=== PATIENT | female | born 1990 | race Caucasian/White ===

== ENCOUNTER → 2016-05-28 | Outpatient (CLI) | payer OTHER ==
[~2016-05-28] MED LIST: ACET50TA PO; IBUP80TA PO; PRENTAB55 PO
--- NOTE | 2016-05-28 14:41 | REP ---
Right upper quadrant sonography: History: Right upper quadrant abdominal pain. Findings: Scanning through the right upper quadrant of the abdomen demonstrates a normal sized thin-walled gallbladder without evidence of tenderness to scanning. There is non-shadowing echogenic material on the dependent portion the gallbladder which is mobile. This may be mucoid debris versus non-shadowing calculus. Common bile duct is normal measuring 0.5 cm in greatest diameter. No focal liver lesion is seen. Pancreatic tail is obscured by abdominal gas. No pancreatic abnormality is appreciated. There is no visible free fluid in the abdomen. No right renal abnormality is seen. The right kidney measures 11.2 x 6.0 x 4.8 cm. Impression: Non-shadowing mobile echogenic material in the dependent gallbladder wall, sludge ball versus non-shadowing calculus. Otherwise negative right upper quadrant sonography. Signed by Spencer Santos MD 05/28/2016 07:18 P
== END ==
LOC: M RAD 08:42
PROVIDERS: ATTEND Nurse Practitioner Adult Health
DX: R93.3 Abnormal findings on diagnostic imaging of other parts of digestive tract (principal); K81.0 Acute cholecystitis; R10.10 Upper abdominal pain, unspecified

== ENCOUNTER → 2016-08-16 | Outpatient (CLI) | payer OTHER ==
[~2016-08-16] VITALS: Ht 157.5 cm; Wt 78.9 kg
[~2016-08-16] MED LIST changes: +LIDOCAINE 2% INJ 100 MG/5 ML SDV (FOR ANES.) As Ordered ONE; +NS 1,000 ML IV ONE; +OMEP20CA3 PO; +PROPOFOL 200 MG/20 ML VIAL As Ordered ONE; +RANI150T PO; +VITA200016 PO
--- NOTE | 2016-08-16 15:56 | ROOR ---
Patient Name: Audra Flores Procedure Date: 08/16/2016 3:46 PM Date of : 1990 Age: 25 Room: [facility] Gender: Female Note Status: Finalized Procedure: Upper GI endoscopy Indications: Epigastric abdominal pain, Abdominal pain in the right upper quadrant Providers: Ti BECERRA MD Referring MD: MINESH PIÑA NP Requesting Provider: Medicines: Monitored Anesthesia Care Complications: No immediate complications. Procedure: Pre-Anesthesia Assessment: - The heart rate, respiratory rate, oxygen saturations, blood pressure, adequacy of pulmonary ventilation, and response to care were monitored throughout the procedure. The Endoscope was introduced through the mouth, and advanced to the second part of duodenum. The upper GI endoscopy was accomplished without difficulty. The patient tolerated the procedure well. Findings: The esophagus was normal. The stomach was normal. The examined duodenum was normal. Impression: - Normal esophagus. - Normal stomach. - Normal examined duodenum. - No specimens collected. Recommendation: - Observe patient's clinical course. - Continue present medications. iT Becerra MD Ti BECERRA MD 08/16/2016 3:56:04 PM This report has been signed electronically. Number of Addenda: 0 Note Initiated On: 08/16/2016 3:46 PM Estimated Blood Loss: Estimated blood loss: none.
--- NOTE | 2016-08-16 16:11 | ROOR ---
Patient Name: Audra Flores Procedure Date: 08/16/2016 3:47 PM Date of : 1990 Age: 25 Room: [facility] Gender: Female Note Status: Finalized Procedure: Colonoscopy Indications: Generalized abdominal pain, Abnormal CT of the GI tract, Change in bowel habits, Constipation Providers: Ti BECERRA MD Referring MD: MINESH PIÑA NP Requesting Provider: Medicines: Monitored Anesthesia Care Complications: No immediate complications. Procedure: Pre-Anesthesia Assessment: - The heart rate, respiratory rate, oxygen saturations, blood pressure, adequacy of pulmonary ventilation, and response to care were monitored throughout the procedure. The Colonoscope was introduced through the anus and advanced to 5 cm into the ileum. The colonoscopy was performed without difficulty. The patient tolerated the procedure well. The quality of the bowel preparation was good. Findings: The perianal and digital rectal examinations were normal. A 4 mm polyp was found in the descending colon. The polyp was sessile. The polyp was removed with a cold snare. Resection and retrieval were complete. Small Internal Hemorrhoids. The exam was otherwise without abnormality on direct and retroflexion views. Impression: - One 4 mm polyp in the descending colon, removed with a cold snare. Resected and retrieved. - Small Internal Hemorrhoids. - The examination of the colon and terminal ileum is otherwise normal on direct and retroflexion views. Recommendation: - Continue present medications. - Telephone endoscopist for pathology results in 2 weeks. - If the pathology report reveals adenomatous tissue, then repeat the colonoscopy for surveillance in 5 years. - If the pathology report indicates hyperplastic polyp, then repeat colonoscopy at age [age] years old. Ti Becerra MD Ti BECERRA MD 08/16/2016 4:11:07 PM This report has been signed electronically. Number of Addenda: 0 Note Initiated On: 08/16/2016 3:47 PM Estimated Blood Loss: Estimated blood loss: none.
[2016-08-16 16:34] VITALS: BP 114/60
== END | disposition home or self-care (01) ==
LOC: M OPP 13:46
PROVIDERS: ATTEND Internal Medicine Gastroenterology
DX: R93.3 Abnormal findings on diagnostic imaging of other parts of digestive tract (principal); R10.84 Generalized abdominal pain; R19.4 Change in bowel habit; R11.0 Nausea; D12.4 Benign neoplasm of descending colon; K64.8 Other hemorrhoids; R10.11 Right upper quadrant pain; R10.13 Epigastric pain; R12 Heartburn; G47.8 Other sleep disorders; G47.30 Sleep apnea, unspecified; R06.83 Snoring; Z87.891 Personal history of nicotine dependence; Z79.899 Other long term (current) drug therapy; Z80.6 Family history of leukemia

== ENCOUNTER → 2016-10-29 | Outpatient (REF) | payer OTHER ==
[~2016-10-29] MED LIST changes: -LIDOCAINE 2% INJ 100 MG/5 ML SDV (FOR ANES.) As Ordered ONE; -NS 1,000 ML IV ONE; -PROPOFOL 200 MG/20 ML VIAL As Ordered ONE
== END ==
LOC: M SFHCLERA 20:59
PROVIDERS: ATTEND Nurse Practitioner Family
DX: R20.2 Paresthesia of skin (principal)

== ENCOUNTER → 2016-10-30 | Outpatient (REF) | payer OTHER ==
[2016-11-09 00:06] LABS: Lyme Disease IgG/IgM Antibodie <0.91 ISR (0.00-0.90); Lyme Disease IgM Ab Quantitati <0.80 index (0.00-0.79)
== END ==
LOC: M LABDRAW1 15:48
PROVIDERS: ATTEND Orthopaedic Surgery
DX: M54.5 Low back pain (principal)

== ENCOUNTER → 2017-03-20 | Outpatient (CLI) | payer OTHER ==
[~2017-03-20] MED LIST changes: -ACET50TA PO; -IBUP80TA PO; -OMEP20CA3 PO; -PRENTAB55 PO; +PROHANCE 279.3MG/ML 15ML VIAL (A9576) As Ordered; -RANI150T PO; -VITA200016 PO
== END ==
LOC: M RAD 12:41
DX: M54.9 Dorsalgia, unspecified (principal); G89.29 Other chronic pain
CPT/HCPCS: A9576

== ENCOUNTER → 2017-04-09 | Outpatient (REF) | payer OTHER ==
[2017-04-09 13:33] LABS: BASO % 0.8 % (0.0-1.0); EOS # 0.1 10^3/uL (0.0-0.50); EOS % 2.1 % (0.0-3.0); HEMATOCRIT 37.7 % (36.0-47.0); HEMOGLOBIN 12.4 g/dl (12.0-16.0); MEAN CORPUSCULAR HEMOGLOBIN 28.5 pg (27.0-33.0); MEAN CORPUSCULAR HGB CONC 32.9 g/dl (32.0-36.5); MEAN CORPUSCULAR VOLUME 86.7 fl (80.0-96.0); MONO # 0.4 10^3/uL (0.0-0.8); MONO % 8.4 % (0.0-5.0); NEUTROPHILS # 2.2 10^3/uL (1.8-7.7); NEUTROPHILS % 46.7 % (36.0-66.0); PLATELET COUNT, AUTOMATED 296 10^3/uL (150-450); RED BLOOD COUNT 4.35 10^6/uL (4.00-5.40); RED CELL DISTRIBUTION WIDTH 12.5 % (11.5-14.5); WHITE BLOOD COUNT 4.7 10^3/uL (4.0-10.0)
[2017-04-09 13:51] LABS: ALBUMIN 3.9 GM/DL (3.2-5.2); ALBUMIN/GLOBULIN RATIO 1.11 (1.00-1.93); ALKALINE PHOSPHATASE 54 U/L (45-117); ALT/SGPT 17 U/L (12-78); ANION GAP 6 MEQ/L (8-16); AST/SGOT 16 U/L (7-37); BILIRUBIN,TOTAL 0.3 MG/DL (0.2-1.0); BLOOD UREA NITROGEN 11 MG/DL (7-18); CALCIUM LEVEL 8.9 MG/DL (8.5-10.1); CARBON DIOXIDE LEVEL 29 MEQ/L (21-32); CHLORIDE LEVEL 107 MEQ/L (98-107); CREATININE FOR GFR 0.73 MG/DL (0.55-1.02); GLOMERULAR FILTRATION RATE > 60.0 (>60); GLUCOSE, FASTING 74 MG/DL (70-100); POTASSIUM SERUM 4.3 MEQ/L (3.5-5.1); RHEUMATOID FACTOR QUANT < 10.0 IU/ML (0-15.0); SODIUM LEVEL 142 MEQ/L (136-145); TOTAL PROTEIN 7.4 GM/DL (6.4-8.2)
[2017-04-09 13:55] LABS: TOTAL 25(OH) VITAMIN D 20.6 NG/ML (30.0-100.0)
[2017-04-09 14:13] LABS: ERYTHROCYTE SEDIMENTATION RATE 18 mm/hr (0-20)
[2017-04-11 00:06] LABS: ANTINUCLEAR ANTIBODIES DIRECT Negative (Negative)
== END ==
LOC: M LABNEURO 09:02
DX: R51 Headache (principal)

== ENCOUNTER → 2017-04-15 | Outpatient (CLI) | payer OTHER ==
[2017-04-15 10:14] LABS: EOS # 0.2 10^3/uL (0.0-0.50); EOS % 3.6 % (0.0-3.0); HEMATOCRIT 38.5 % (36.0-47.0); HEMOGLOBIN 12.7 g/dl (12.0-16.0); LYMPH # 1.7 10^3/uL (1.5-6.5); LYMPH % 40.5 % (24.0-44.0); MEAN CORPUSCULAR HEMOGLOBIN 28.8 pg (27.0-33.0); MEAN CORPUSCULAR VOLUME 87.3 fl (80.0-96.0); MONO # 0.3 10^3/uL (0.0-0.8); MONO % 7.5 % (0.0-5.0); NEUTROPHILS % 47.4 % (36.0-66.0); PLATELET COUNT, AUTOMATED 288 10^3/uL (150-450); RED BLOOD COUNT 4.41 10^6/uL (4.00-5.40); RED CELL DISTRIBUTION WIDTH 12.3 % (11.5-14.5); WHITE BLOOD COUNT 4.2 10^3/uL (4.0-10.0)
[2017-04-15 10:39] LABS: ESTIMATED AVERAGE GLUCOSE 91 MG/DL (60-110); HEMOGLOBIN A1c 4.8 %
[2017-04-15 10:48] LABS: MALB URINE SIEMENS < 5.0 MG/L; MAU/CREAT RATIO 2.7 MCG/MG (0.0-30.0)
[2017-04-15 10:59] LABS: ALBUMIN 3.6 GM/DL (3.2-5.2); ALKALINE PHOSPHATASE 60 U/L (45-117); ALT/SGPT 16 U/L (12-78); ANION GAP 6 MEQ/L (8-16); AST/SGOT 14 U/L (7-37); BILIRUBIN,TOTAL 0.3 MG/DL (0.2-1.0); BLOOD UREA NITROGEN 9 MG/DL (7-18); CALCIUM LEVEL 8.6 MG/DL (8.5-10.1); CARBON DIOXIDE LEVEL 30 MEQ/L (21-32); CHLORIDE LEVEL 105 MEQ/L (98-107); CHOLESTEROL LEVEL 179 MG/DL (<200); CHOLESTEROL RISK RATIO 3.033 (<5); CREATININE FOR GFR 0.73 MG/DL (0.55-1.30); FREE T4 0.88 NG/DL (0.76-1.46); GLOMERULAR FILTRATION RATE > 60.0 (>60); GLUCOSE, FASTING 78 MG/DL (70-100); HDL CHOLESTEROL 59 MG/DL (>40); LDL CHOLESTEROL 99.8 MG/DL (<100); NON-HDL-C 120 MG/DL; POTASSIUM SERUM 4.3 MEQ/L (3.5-5.1); SODIUM LEVEL 141 MEQ/L (136-145); TOTAL PROTEIN 7.2 GM/DL (6.4-8.2); TRIGLYCERIDES LEVEL 101 MG/DL (<150)
[2017-04-15 11:33] LABS: TOTAL 25(OH) VITAMIN D 22.1 NG/ML (30.0-100.0)
== END ==
LOC: M LAB 09:06
DX: Z79.899 Other long term (current) drug therapy (principal)

== ENCOUNTER 2024-04-23 11:06 | Emergency (ER) | payer OTHER ==
[~2024-04-23] VITALS: Ht 157.5 cm; Wt 72.4 kg
[~2024-04-23 11:06] MED LIST changes: +IBUP80TA PO; +MAPA500T17 PO; +MAPA500T2 PO; +OMEP1CAP73 PO; +PRENTAB55 PO; -PROHANCE 279.3MG/ML 15ML VIAL (A9576) As Ordered; +RANI150T PO; +VITA200016 PO
[2024-04-23 12:29] VITALS: TEMP 98.1
[2024-04-23 12:46] LABS: BASO % 0.7 % (0.0-1.0); EOS # 0.2 10^3/uL (0.0-0.5); EOS % 2.8 % (0.0-3.0); HEMATOCRIT 38.6 % (36.0-47.0); HEMOGLOBIN 12.9 g/dl (12.0-15.5); LYMPH # 1.4 10^3/uL (1.5-5.0); LYMPH % 24.7 % (24.0-44.0); MEAN CORPUSCULAR HEMOGLOBIN 29.1 pg (27.0-33.0); MEAN CORPUSCULAR HGB CONC 33.4 g/dl (32.0-36.5); MEAN CORPUSCULAR VOLUME 87.1 fl (80.0-96.0); MONO # 0.4 10^3/uL (0.0-0.8); MONO % 7.4 % (2.0-8.0); NEUTROPHILS # 3.6 10^3/uL (1.5-8.5); NEUTROPHILS % 64.2 % (36.0-66.0); PLATELET COUNT, AUTOMATED 301 10^3/uL (150-450); RED BLOOD COUNT 4.43 10^6/uL (4.00-5.40); WHITE BLOOD COUNT 5.7 10^3/uL (4.0-10.0)
[2024-04-23 13:12] LABS: CK-MB VALUE MASS < 1.0 NG/ML (<3.6)
[2024-04-23 13:13] LABS: CPK CREATINE PHOSPHOKINASE 97 U/L (34-145); MB/CK RELATIVE INDEX 1.03 (< OR =4)
[2024-04-23 13:14] LABS: ALBUMIN 3.8 G/DL (3.2-5.2); ALKALINE PHOSPHATASE 56 U/L (35-104); ALT/SGPT 12 U/L (7.0-40); AST/SGOT 14 U/L (<34); BILIRUBIN,DIRECT 0.1 MG/DL (<0.4); BILIRUBIN,TOTAL 0.5 MG/DL (0.3-1.2); BLOOD UREA NITROGEN 14 MG/DL (9-23); CALCIUM LEVEL 9.2 MG/DL (8.5-10.1); CARBON DIOXIDE LEVEL 28 MMOL/L (20-31); CHLORIDE LEVEL 105 MMOL/L (98-107); CREATININE FOR GFR 0.74 MG/DL (0.55-1.30); GLOMERULAR FILTRATION RATE > 60.0 (>60); GLUCOSE, FASTING 102 MG/DL (60-100); SODIUM LEVEL 140 MMOL/L (136-145); TOTAL PROTEIN 7.4 G/DL (5.7-8.2)
[2024-04-23 13:22] LABS: HCG, SERUM QUALITATIVE NEGATIVE (NEGATIVE)
[2024-04-23 17:00] VITALS: BP 112/61; O2SAT 97
[2024-04-23] MEDS: OMEPRAZOLE 20MG CAP PO ONE (17:19)
[2024-04-23] MEDS: ONDANSETRON 4MG ORAL DISINTEGRATING TAB PO ONE (17:19)
[2024-04-23] MEDS ORDERED: ONDA-282 PO (17:31)
== END 2024-04-23 17:55 | disposition home or self-care (01) ==
LOC: M ED 11:06 → EDBD 11:06 → M ED 17:55
DX: R07.9 Chest pain, unspecified (principal); K20.90 Esophagitis, unspecified without bleeding; I45.10 Unspecified right bundle-branch block; K21.9 Gastro-esophageal reflux disease without esophagitis; F41.9 Anxiety disorder, unspecified; F17.210 Nicotine dependence, cigarettes, uncomplicated; Z79.1 Long term (current) use of non-steroidal anti-inflammatories (NSAID); Z79.899 Other long term (current) drug therapy

== ENCOUNTER → 2024-07-10 | Outpatient (CLI) | payer OTHER ==
[~2024-07-10] MED LIST changes: +ONDA-282 PO
== END ==
LOC: M RAD 11:14
PROVIDERS: ATTEND Specialist
DX: N92.0 Excessive and frequent menstruation with regular cycle (principal)

== ENCOUNTER 2024-12-30 10:56 | Day surgery (SDC) | payer OTHER ==
[~2024-12-30] VITALS: Ht 157.5 cm; Wt 71.1 kg
[~2024-12-30 10:56] MED LIST changes: +BUPR150T12 PO; +LEXA1TAB PO; +LIDOCAINE 2% 100 MG/5 ML SDV (FOR ANES.) As Ordered ONE; +MELO15TA28 PO; +MIDAZOLAM INJ 2 MG/2 ML VIAL As Ordered ONE; +ONDANSETRON 4MG 2ML VIAL As Ordered ONE; +PHEN37.511 PO; +PROBCAP2 PO; +ROCURONIUM BROMIDE 50MG/5ML VIAL As Ordered ONE; +VITA100093 PO; +dexAMETHasone 4 MG/ML 1 ML VIAL As Ordered ONE; +dexmedeTOMIDine (4 MCG/ML) 200 MCG/50 ML BTL As Ordered ONE
[2024-12-30] MEDS: GABAPENTIN 300 MG CAP PO ONE (11:48)
[2024-12-30] MEDS: FAMOTIDINE 20 MG/2 ML VIAL IVP ONE (11:48)
[2024-12-30] MEDS: SCOPOLAMINE 1MG TRANSDERMAL PATCH TOP ONE (11:48)
[2024-12-30 12:17] LABS: PLATELET COUNT, AUTOMATED 252 10^3/uL (150-450)
[2024-12-30] MEDS ORDERED: ACETAMINOPHEN 1000MG/100ML IV BAG As Ordered ONE (12:27)
[2024-12-30] MEDS: ceFAZolin SOD 2 GM IV ONCE IV ONE (12:59)
[2024-12-30] MEDS ORDERED: IBUP600T42 PO (13:00)
[2024-12-30] MEDS ORDERED: OXYC1TAB23 PO (13:01)
[2024-12-30] MEDS ORDERED: COLA100C5 PO (13:02)
[2024-12-30] MEDS ORDERED: ESMOLOL 100 MG/10 ML VIAL As Ordered ONE (13:22)
[2024-12-30] MEDS ORDERED: KETOROLAC 30 MG/ML 1 ML VIAL As Ordered ONE (13:36)
[2024-12-30] MEDS ORDERED: SUGAMMADEX SODIUM 500 MG/5 ML VIAL As Ordered ONE (13:36)
[2024-12-30] MEDS ORDERED: MORPHINE 4 MG/ML 1 ML VIAL IV PRN (14:35)
[2024-12-30] MEDS ORDERED: HYDROMORPHONE HCL 0.5 MG/0.5 ML SYRINGE IV PRN (14:35)
[2024-12-30] MEDS ORDERED: ONDANSETRON 4MG 2ML VIAL IV PRN (15:20)
[2024-12-30 16:28] VITALS: BP 119/60; TEMP 97.7; O2SAT 99
== END 2024-12-30 16:31 | disposition home or self-care (01) ==
LOC: M SDC 10:56
PROVIDERS: ATTEND Specialist
DX: N92.0 Excessive and frequent menstruation with regular cycle (principal); N94.6 Dysmenorrhea, unspecified; G47.30 Sleep apnea, unspecified; Z86.718 Personal history of other venous thrombosis and embolism; Z79.899 Other long term (current) drug therapy; F41.9 Anxiety disorder, unspecified; F32.A Depression, unspecified
CPT/HCPCS: 36415; 58571; 81025; 85027; 86850; 86900; 86901; 88307; J0131; J0665; J0688; J1100; J1805; J1885; J2250; J2405; J3010; S2900